=== PATIENT | female | born 1935 | race Caucasian/White ===

== ENCOUNTER 2019-10-21 06:44 | Observation (INO) ==
[~2019-10-21 06:44] MED LIST: CLINDAMYCIN 900 MG in DEXTROSE 5% 100 ML IV SCH
--- NOTE | 2019-10-21 07:35 | Emergency Department Note ---
General (ED) Blank Date of Service October 21, 2019 Romero Herr D.O., PGY-3, participated in the care of this patient. Resident Activity Tracking Resident Involvement: Resident Care Provided Care Provided: Adult [facility]
--- NOTE | 2019-10-21 07:52 | Emergency Department Note ---
History of Present Illness General Chief complaint: Infection Stated complaint: INFECTED SPINAL CORD STIMULATOR Time Seen by Provider: 10/21/19 07:04 Source: patient Limitations: no limitations History of Present Illness Provider complaint: Right low back pain Onset (ago): day(s) Location: back and right Pain Consistency: + constant Maximum Pain Intensity: 8 Quality: + other (Sore and itching) Associated symptoms: + rash (Redness to the area); no chest pain, no cough, no fever/chills, no nausea/vomiting and no shortness of breath This is an 84-year-old female who had a nerve stimulator placed at a different hospital on October 09. Postop day #2 she developed redness and itching to the right lower back where the control unit was placed. She complains of pain to that area which she describes as a soreness. She rates the pain an 8 out of 10 in severity. Is worse with palpation. No associated fever, vomiting, chest pain, shortness of breath, fecal urinary incontinence, numbness or weakness to lower extremity, cough or cold symptoms. She had the nerve stimulator placed because of years of right lower back pain rating down her legs. She called her surgeon yesterday whom she saw via telehealth. That surgeon talk to Dr. Simmons of pain management who recommended CT of the abdomen pelvis and blood work. This was performed yesterday at another hospital. Apparently Dr. Simmons was told the results and advised patient to come here for evaluation. Home Medications Home Medications Medication Instructions Recorded Confirmed Type acetaminophen [Tylenol Extra 500 mg PO Q6H PRN 10/21/19 10/21/19 History Strength] calcium polycarbophil [Fiber 1,250 mg PO DAILY 10/21/19 10/21/19 History Therapy (ca polycarboph)] cephalexin [Keflex] 500 mg PO TID 10/21/19 10/21/19 History diphenhydramine HCl [Benadryl] 25 mg PO DAILY 10/21/19 10/21/19 History docusate sodium [Colace] 100 mg PO DAILY 10/21/19 10/21/19 History tramadol 50 mg PO Q6H PRN 10/21/19 10/21/19 History Allergies Allergy/AdvReac Type Severity Reaction Status Date / Time latex Allergy Severe Swelling Verified 10/21/19 10:39 of Lip/Tongue/Throat acetaminophen [From Percocet] Allergy Mild Headache Verified 10/21/19 10:39 codeine Allergy Mild Nausea Verified 10/21/19 10:39 gabapentin [From Neurontin] Allergy Mild Dizziness Verified 10/21/19 10:39 oxycodone [From Percocet] Allergy Mild Nausea Verified 10/21/19 10:39 Penicillins Allergy Mild Rash Verified 10/21/19 10:39 Lhbamvw-Agj-Nda Reductase Allergy Mild Cramping Verified 10/21/19 10:39 Inhibitor of the Muscles Sulfa (Sulfonamide Allergy Mild Rash Verified 10/21/19 10:39 Antibiotics) Past Med/Surg History Medical History Chronic back pain Dyslipidemia GERD (gastroesophageal reflux disease) Herpes zoster Mitral regurgitation moderate Osteoarthritis Sciatica Seasonal allergies Surgical History S/P appendectomy S/P cholecystectomy S/P insertion of spinal cord stimulator 10/10/19 inserted at a hospital in [place] S/P PAVAN (total abdominal hysterectomy) S/P wrist surgery Right Social History Smoking Status: Never smoker Preferred Language: Portuguese current occupational status: retired Feels Safe at Home: Yes Review of Systems See HPI for pertinent positives & negatives. and A total of 10 systems reviewed and were otherwise negative Physical Exam Vital Signs Vital Signs - 24 hr 10/21/19 06:48 10/21/19 08:39 10/21/19 09:52 Temperature 36.7 C Temperature Source Oral Pulse Rate 68 Pulse Rate [Left Finger] 78 76 Pulse Rhythm [Left Finger] Pulse Strength [Left Finger] Respiratory Rate 18 18 20 Respiratory Effort / Characteristics Respiratory Depth Respiratory Pattern Blood Pressure 132/74 Blood Pressure [Left Arm] 134/97 123/68 Blood Pressure [Right Arm] Blood Pressure Mean 93 Blood Pressure Mean [Left Arm] 109 86 Blood Pressure Mean [Right Arm] Blood Pressure Position [Right Arm] Pulse Oximetry 98 96 97 Oxygen Delivery Method Room Air Room Air Room Air Sepsis Recent Fever Within 48 Hours No Sepsis New/Unexplained Change in Mental Status No Sepsis Action Taken by Nursing No Action Required 10/21/19 10:34 Temperature 36.7 C Temperature Source Oral Pulse Rate Pulse Rate [Left Finger] 77 Pulse Rhythm [Left Finger] Regular Pulse Strength [Left Finger] Normal Respiratory Rate 20 Respiratory Effort / Characteristics Non-Labored Spontaneous Respiratory Depth Normal Respiratory Pattern Regular Blood Pressure Blood Pressure [Left Arm] Blood Pressure [Right Arm] 141/85 H Blood Pressure Mean Blood Pressure Mean [Left Arm] Blood Pressure Mean [Right Arm] 103 Blood Pressure Position [Right Arm] Lying Pulse Oximetry 99 Oxygen Delivery Method Room Air Sepsis Recent Fever Within 48 Hours Sepsis New/Unexplained Change in Mental Status Sepsis Action Taken by Nursing Constitutional: Vital signs reviewed. Eyes: Pupils are equal round reactive to light. Conjunctiva are noninjected. ENT: Pharynx is clear without erythema or exudate. Mucous membranes are moist. Neck supple without meningeal signs. Respiratory: Clear to auscultation bilaterally. Breath sounds are equal bilaterally. Cardiovascular: Regular rate and rhythm. No rubs or gallops. GI: Soft, nondistended and nontender. Bowel sounds are present. Musculoskeletal: No peripheral edema. Midline incision to the spine shows no signs of infection or dehiscence. It appears to be healing appropriately. Incision over the right posterior sacral area is intact with some erythematous discoloration surrounding it without discharge. Integumentary: No cyanosis. or jaundice. Neurological: The patient is awake and alert. No focal deficits. Motor and sensation are intact in lower extremities. Negative straight leg raise bilaterally. Psychiatric: Normal affect. Not anxious appearing. Course Administered Medications Fentanyl Citrate (Fentanyl Citrate) 25 mcg IV Q5M PRN PRN Reason: PACU Use Only-Pain Stop: 10/21/19 18:21 Last Admin: 10/21/19 13:44 Dose: 25 mcg Documented by: [id number] Lactated Ringer's (Lr) 1,000 mls @ 125 mls/hr IV .Q8H ALEX Stop: 11/20/19 08:44 Last Admin: 10/21/19 09:20 Dose: 125 mls/hr Documented by: [id number] Discontinued Medications Bacitracin (Bacitracin) Confirm Administered Dose 50,000 units .ROUTE .STK-MED ONE Stop: 10/21/19 11:09 Last Admin: 10/21/19 13:18 Dose: Not Given Documented by: [id number] Bupivacaine HCl/Epinephrine Bitart (Bupivacaine 0.25%-Epi [id number]) Confirm Administered Dose 30 ml .ROUTE .STK-MED ONE Stop: 10/21/19 11:08 Last Admin: 10/21/19 13:10 Dose: 7 ml Documented by: [id number] Clindamycin Phosphate 900 mg/ (Dextrose) 106 mls @ 100 mls/hr IV PREOP ALXE Stop: 10/21/19 10:30 Last Admin: 10/21/19 11:46 Dose: 100 mls/hr Documented by: [id number] Medical Decision Making Differential Diagnosis Postoperative pain, allergy, dermatitis, postop pain, abscess Medical Records Attestation: I reviewed the patient's medical records. I did perform a limited focused review of portions of the patient's old chart on the electronic medical record. The patient has had no recent prior visits to this hospital. Home Medications Current Medication List: was personally reviewed by me Laboratory Data Attestation: I reviewed the patient's lab results. Result diagrams: 10/21/19 07:50 10/21/19 07:50 Lab Results 10/21/19 10/21/19 10/21/19 Range/Units 07:50 07:50 07:50 WBC 13.61 H (4.8-10.8) K/uL RBC 5.08 (4.2-5.4) M/uL Hgb 15.5 (12.0-16.0) g/dL Hct 45.4 (37-47) % MCV 89.4 (80-100) fL MCH 30.5 (25-34) pg MCHC 34.1 (32-36) g/dL RDW Std Deviation 43.8 (36.4-46.3) fL RDW Coeff of Elizabeth 13.3 (11.5-14.5) % Plt Count 265 (130-400) K/uL MPV 9.1 (7.4-10.4) fL Immature Gran % (Auto) 2.2 % Neut % (Auto) 57.4 % Lymph % (Auto) 27.9 % [place] % (Auto) 7.8 % Eos % (Auto) 4.4 % Baso % (Auto) 0.3 % Neut # (Auto) 7.81 H (1.4-6.5) K/uL Lymph # (Auto) 3.80 H (1.2-3.4) K/uL [place] # (Auto) 1.06 H (0.11-0.59) K/uL Eos # (Auto) 0.60 H (0-0.5) K/uL Baso # (Auto) 0.04 (0-0.2) K/uL Immature Gran # (Auto) 0.30 H (0.00-0.02) K/uL Sodium 142 (136-145) mmol/L Potassium 3.7 (3.5-5.1) mmol/L Chloride 108 H (98-107) mmol/L Carbon Dioxide 30 (21-32) mmol/L Anion Gap 4.0 (3-11) BUN 19 H (7-18) mg/dl Creatinine 0.87 (0.6-1.2) mg/dl Est Cr Clr Drug Dosing 36.2 ml/min Est GFR ( Amer) 71.4 Est GFR (Non-Af Amer) 61.6 BUN/Creatinine Ratio 21.6 H (10-20) Glucose 88 (70-99) mg/dl Calcium 9.1 (8.5-10.1) mg/dl C-Reactive Protein < 0.29 (0-0.29) mg/dl COVID-19 Eval Order COVID-19 PCR (Negative) 10/21/19 10/21/19 Range/Units Unknown Unknown WBC (4.8-10.8) K/uL RBC (4.2-5.4) M/uL Hgb (12.0-16.0) g/dL Hct (37-47) % MCV (80-100) fL MCH (25-34) pg MCHC (32-36) g/dL RDW Std Deviation (36.4-46.3) fL RDW Coeff of Elizabeth (11.5-14.5) % Plt Count (130-400) K/uL MPV (7.4-10.4) fL Immature Gran % (Auto) % Neut % (Auto) % Lymph % (Auto) % [place] % (Auto) % Eos % (Auto) % Baso % (Auto) % Neut # (Auto) (1.4-6.5) K/uL Lymph # (Auto) (1.2-3.4) K/uL [place] # (Auto) (0.11-0.59) K/uL Eos # (Auto) (0-0.5) K/uL Baso # (Auto) (0-0.2) K/uL Immature Gran # (Auto) (0.00-0.02) K/uL Sodium (136-145) mmol/L Potassium (3.5-5.1) mmol/L Chloride (98-107) mmol/L Carbon Dioxide (21-32) mmol/L Anion Gap (3-11) BUN (7-18) mg/dl Creatinine (0.6-1.2) mg/dl Est Cr Clr Drug Dosing ml/min Est GFR ( Amer) Est GFR (Non-Af Amer) BUN/Creatinine Ratio (10-20) Glucose (70-99) mg/dl Calcium (8.5-10.1) mg/dl C-Reactive Protein (0-0.29) mg/dl COVID-19 Eval Order Covid19 Done at [facility] COVID-19 PCR NEGATIVE (Negative) Blood Pressure Blood Pressure Findings: Elevated blood pressure Blood Pressure Disposition: Referred to patients primary care provider [facility] Narrative I did evaluate the patient as noted above. IV access was established. I did order and review the patient's blood work as noted in the electronic medical record. CBC demonstrates a white count of 13,000. CRP is not elevated. The patient, however, is on steroids. Electrolytes are unremarkable other than a ch loride of 108. I did speak to Dr. 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 He did come down to the emergency department and evaluated the patient for likely removal of the stimulator. He stated that the CT scan yesterday demonstrated no fluid collection. ESR and CRP were negative and the white count was elevated but likely from steroid use. The patient stated that she has been n.p.o. as instructed. The patient was taken to the OR for removal of her neurostimulator. Resident Physician Supervision Note: I did perform an independent evaluation and examination of this patient as described. I also saw this patient in conjunction with the resident, Dr. Benson, and guided management for the patient. Impression & Plan Post-operative infection Discharge Plan Visit Data *Final* Discharge Date/Time: 10/21/19 09:55 Chief Complaint: Infection Stated Complaint: INFECTED SPINAL CORD STIMULATOR ED Provider: Mikie Antunez ED Midlevel Provider: Romero Benson Discharge Problem: Post-operative infection Patient Disposition: Still a Patient Discharge Instructions Interventions: ED Discharge Assessment Last Done: 10/21/19 09:55 Discharge Problem: Post-operative infection Qualifiers: Encounter type: initial encounter Postoperative infection type: unspecified type Qualified Code(s): T81.40XA - Infection following a procedure, unspecified, initial encounter
[2019-10-21 08:01] LABS: Basophils # (auto) 0.04 K/uL (0-0.2); Basophils % (auto) 0.3 %; Eosinophils % (auto) 4.4 %; Hematocrit (blood only) 45.4 % (37-47); Hemoglobin 15.5 g/dL (12.0-16.0); Immature Granulocytes % (auto) 2.2 %; Lymphocytes % (auto) 27.9 %; Mean Corpuscular Hemoglobin 30.5 pg (25-34); Mean Corpuscular Hgb Conc 34.1 g/dL (32-36); Mean Corpuscular Volume 89.4 fL (80-100); Mean Platelet Volume 9.1 fL (7.4-10.4); Monocytes # (auto) 1.06 K/uL (0.11-0.59); Monocytes % (auto) 7.8 %; Neutrophils # (auto) 7.81 K/uL (1.4-6.5); Neutrophils % (auto) 57.4 %; Platelet Count 265 K/uL (130-400); RDW Coefficient of Variation 13.3 % (11.5-14.5); RDW Standard Deviation 43.8 fL (36.4-46.3); Red Blood Count 5.08 M/uL (4.2-5.4); White Blood Count 13.61 K/uL (4.8-10.8)
[2019-10-21 08:16] LABS: BUN Creatinine Ratio 21.6 (10-20); Calcium 9.1 mg/dl (8.5-10.1); Creatinine Clr Calc Pharmacy 36.2 ml/min; Est GFR (African American) 71.4; Est GFR (Non-African American) 61.6; Potassium 3.7 mmol/L (3.5-5.1)
[2019-10-21] MEDS ORDERED: LACTATED RINGER'S 1,000 ML IV SCH (08:45)
--- NOTE | 2019-10-21 09:28 | History & Physical Report ---
Date of Service October 21, 2019 Assessment & Plan (1) Post op infection: * Recommend explanation of pulse generator and leads. Risks, benefits and alternatives reviews. Patient agreable to the plan and wants to proceed. * Patient to undergo allergy testing for metal allergies as an outpatient for further consideration of future reimplantation. Present on Admission?: Yes (2) S/P insertion of spinal cord stimulator: Present on Admission?: Yes (3) Mitral regurgitation: Present on Admission?: Yes (4) Chronic back pain: Present on Admission?: Yes Admission and Anticipated Discharge Date Admission Date: 10/21/19 Anticipated date of discharge: 10/21/19 History of Present Illness Anita Zapata is a84 year ol female with neuropathic pain and underwent implantation of spinal cord stimulator system on 11/10/2019. He is after the implantation, patient noticed redness, tenderness and erythema over the pulse generator site in the right proximal buttock area. She did not experience any fevers, chills or any other signs of infection. She was seen by a local pain practitioner and placed clindamycin and oral dexamethasone for possibility of a allergic reaction to the acting in case. Subsequently she was seen by a general surgeon and the antibiotic was changed to Keflex. Patient was seen for follow-up yesterday local provider and was noted to have increased pain and tenderness and increasing area of erythema at the pulse generator site. She underwent a CT scan of the area with contrast which did not show any fluid collection or hematoma. She also underwent a CBC which showed elevated white count of 13,000 with no left shift. Rest of laboratory studies are unremarkable. Because of worsening symptoms in the pocket site, patient was asked to evaluated evaluated and was sent to the [facility] emergency room. After further examination and discussion with the patient, he was elected to explant the pulse generator and the leads due to possibly of infection or an allergic reaction to the titanium case. Primary Care Provider: NO PCP Allergies Allergy/AdvReac Type Severity Reaction Status Date / Time latex Allergy Severe Swelling Verified 10/21/19 10:39 of Lip/Tongue/Throat acetaminophen [From Percocet] Allergy Mild Headache Verified 10/21/19 10:39 codeine Allergy Mild Nausea Verified 10/21/19 10:39 gabapentin [From Neurontin] Allergy Mild Dizziness Verified 10/21/19 10:39 oxycodone [From Percocet] Allergy Mild Nausea Verified 10/21/19 10:39 Penicillins Allergy Mild Rash Verified 10/21/19 10:39 Xzltlmf-Sgs-Jlx Reductase Allergy Mild Cramping Verified 10/21/19 10:39 Inhibitor of the Muscles Sulfa (Sulfonamide Allergy Mild Rash Verified 10/21/19 10:39 Antibiotics) Home Medications Home Medications Medication Instructions Recorded Confirmed Type acetaminophen [Tylenol Extra 500 mg PO Q6H PRN 10/21/19 10/21/19 History Strength] calcium polycarbophil [Fiber 1,250 mg PO DAILY 10/21/19 10/21/19 History Therapy (ca polycarboph)] cephalexin [Keflex] 500 mg PO TID 10/21/19 10/21/19 History diphenhydramine HCl [Benadryl] 25 mg PO DAILY 10/21/19 10/21/19 History docusate sodium [Colace] 100 mg PO DAILY 10/21/19 10/21/19 History tramadol 50 mg PO Q6H PRN 10/21/19 10/21/19 History Past Med/Surg History Medical History (Reviewed 10/21/19 @ 11:04 by Enmanuel Rodriguez MD, [facility]) Chronic back pain Dyslipidemia GERD (gastroesophageal reflux disease) Herpes zoster Mitral regurgitation moderate Osteoarthritis Sciatica Seasonal allergies Surgical History S/P appendectomy S/P cholecystectomy S/P insertion of spinal cord stimulator 10/10/19 inserted at a hospital in [place] S/P PAVAN (total abdominal hysterectomy) S/P wrist surgery Right Social History (Reviewed 10/21/19 @ 11:04 by Enmanuel Rodriguez MD, [facility]) Smoking Status: Never smoker Preferred Language: Hungarian current occupational status: retired Feels Safe at Home: Yes Review of Systems Constitutional: no fever, no chills, no sweats and no body aches Respiratory: no cough, no dyspnea and no dyspnea on exertion Cardiovascular: + palpitations; no chest pain and no orthopnea Gastrointestinal: no vomiting Genitourinary: no dysuria and no urinary frequency Musculoskeletal: + back pain and + radicular pain (Right flank and right lower extremity); no muscle weakness Pulse generator right proximal buttock area. Integumentary: + wounds (Lumbar spine and right proximal buttock area) and + erythema (Pulse generator site) Neurologic: no localized weakness, no loss of sensation, no numbness and no paresthesia Hematologic / Lymphatic: no easy bleeding, no easy bruising and no coagulopathy Allergy / Immunological: as per Subjective / HPI Physical Exam Constitutional: WD/WN, vitals as above healthy appearing; no acute distress Eyes: PERRL, conjunctivae normal, anicteric sclerae ENMT: external ear and nose normal, oropharynx normal Neck: trachea midline, no thyromegaly Respiratory: normal respiratory effort, lungs clear to auscultation Cardiovascular: RRR, no murmur, no edema Vessels: normal peripheral pulses, normal carotid upstroke, brachial pulses present, radial pulses present and ulnar pulses present; no JVD and no carotid bruit Extremities: normal capillary refill; no pedal edema Gastrointestinal (Abdomen): normal bowel sounds, soft, nontender, no hepatosplenomegaly Musculoskeletal: no cyanosis or clubbing, extremities motor strength 5/5 Skin: + wound (Midthoracic lumbar spine and right posterior buttock area. Pulse generator site tender to palpation with obvious erythema.); no rashes and no ulcers Neurologic: normal touch/pain/proprioception Psychiatric: A+Ox3, euthymic affect Results & Data Results & Data ([facility]) Vital Signs (Past 12 Hours) Vital Signs Temp Pulse Pulse Resp BP BP Pulse Ox 10/21/19 08:39 78 18 134/97 96 10/21/19 06:48 36.7 C 68 18 132/74 98 CBC w Diff Results Results CBC w Diff: RBC 5.08 M/uL (4.2-5.4) 10/21/19 WBC 13.61 K/uL (4.8-10.8) H 10/21/19 Hgb 15.5 g/dL (12.0-16.0) 10/21/19 Hct 45.4 % (37-47) 10/21/19 MCV 89.4 fL (80-100) 10/21/19 MCH 30.5 pg (25-34) 10/21/19 MCHC 34.1 g/dL (32-36) 10/21/19 RDW Standard Deviation 43.8 fL (36.4-46.3) 10/21/19 RDW Coefficient of Variation 13.3 % (11.5-14.5) 10/21/19 Plt Count 265 K/uL (130-400) 10/21/19 MPV 9.1 fL (7.4-10.4) 10/21/19 Neutrophils (%) (Auto) 57.4 % 10/21/19 Lymphocytes (%) (Auto) 27.9 % 10/21/19 Monocytes # (Auto) 1.06 K/uL (0.11-0.59) H 10/21/19 Eosinophils # (Auto) 0.60 K/uL (0-0.5) H 10/21/19 Immature Granulocyte % (Auto) 2.2 % 10/21/19 Neutrophils # (Auto) 7.81 K/uL (1.4-6.5) H 10/21/19 Lymphocytes # (Auto) 3.80 K/uL (1.2-3.4) H 10/21/19 Monocytes # (Auto) 1.06 K/uL (0.11-0.59) H 10/21/19 Eosinophils # (Auto) 0.60 K/uL (0-0.5) H 10/21/19 Basophils # (Auto) 0.04 K/uL (0-0.2) 10/21/19 Immature Granulocyte # (Auto) 0.30 K/uL (0.00-0.02) H 10/21/19 Code Status & VTE Plan Code Status Full code VTE Prophylaxis Plan VTE Prophylaxis will be ordered: No Reason for no VTE mechanical prophylaxis: Treatment not indicated (1) Post op infection Encounter type: initial encounter Postoperative infection type: deep incisional surgical site Qualified Code(s): T81.42XA - Infection following a procedure, deep incisional surgical site, initial encounter (2) Mitral regurgitation Cardiac valve disease etiology: etiology unspecified Qualified Code(s): I34.0 - Nonrheumatic mitral (valve) insufficiency (3) Chronic back pain Back pain location: low back pain Back pain laterality: right Sciatica presence: with sciatica Sciatica laterality: sciatica of right side Qualified Code(s): M54.41 - Lumbago with sciatica, right side; G89.29 - Other chronic pain
[2019-10-21] MEDS ORDERED: fentaNYL citrate 100 MCG/2 ML VIAL ONE ×2 (10:19→12:15)
[2019-10-21] MEDS ORDERED: LABETALOL HCL IV 5 MG/ML 20ML IV PRN (10:21)
[2019-10-21] MEDS ORDERED: ONDANSETRON INJ 2 MG/ML 2 ML VIAL IV PRN (10:21)
[2019-10-21] MEDS ORDERED: ePHEDrine sulfate 50 MG/ML AMP IV PRN (10:21)
[2019-10-21] MEDS ORDERED: PHENYLEPHRINE 100MCG/ML 5ML SYR IV PRN (10:21)
[2019-10-21] MEDS ORDERED: ATROPINE SULFATE 0.1 MG/ML 10ML SYR IV PRN (10:21)
--- NOTE | 2019-10-21 10:36 | Anesthesiology Consultation ---
Date of Service October 21, 2019 The patient has a rapid Covid 19 test pending. She has had no known Covid 19 contact and has no symptoms of Covid 19. She does have an elevated WBC count likely from recent steroid use. The patient had surgery on 10/10/19 at [facility] to place the pain pump. Her surgeon was not available so she was transferred here for Dr. Rodriguez to see her. The patient saw her adjunct business instructor on 09/17/19 and was found to be stable from a cardiac standpoint with moderate mitral regurgitation. Assessment & Plan (1) Encounter for pre-operative examination: Chart Review Chart Review: Acceptable Risk for Surgery and Patient NOT seen in Pre Admission Testing Consults Requested none History Surgery Operation Date: 10/21/19 07:05 Proposed Procedures p Explantation Spinal Cord System - Enmanuelra Michael MD, [facility] Height/Weight Height: 4 ft 9.5 in Weight: 57.5 kg Allergies Allergy/AdvReac Type Severity Reaction Status Date / Time latex Allergy Severe Swelling Verified 10/21/19 10:39 of Lip/Tongue/Throat acetaminophen [From Percocet] Allergy Mild Headache Verified 10/21/19 10:39 codeine Allergy Mild Nausea Verified 10/21/19 10:39 gabapentin [From Neurontin] Allergy Mild Dizziness Verified 10/21/19 10:39 oxycodone [From Percocet] Allergy Mild Nausea Verified 10/21/19 10:39 Penicillins Allergy Mild Rash Verified 10/21/19 10:39 Unntzfe-Owd-Dui Reductase Allergy Mild Cramping Verified 10/21/19 10:39 Inhibitor of the Muscles Sulfa (Sulfonamide Allergy Mild Rash Verified 10/21/19 10:39 Antibiotics) Medications Home Medications Medication Instructions Recorded Confirmed Last Taken acetaminophen [Tylenol Extra 500 mg PO Q6H PRN 10/21/19 10/21/19 10/20/19 Strength] calcium polycarbophil [Fiber 1,250 mg PO DAILY 10/21/19 10/21/19 10/20/19 Therapy (ca polycarboph)] cephalexin [Keflex] 500 mg PO TID 10/21/19 10/21/19 10/20/19 diphenhydramine HCl [Benadryl] 25 mg PO DAILY 10/21/19 10/21/19 10/20/19 docusate sodium [Colace] 100 mg PO DAILY 10/21/19 10/21/19 10/20/19 tramadol 50 mg PO Q6H PRN 10/21/19 10/21/19 10/20/19 Active Medications Generic Name Dose Route Start Last Admin Trade Name Aroldoq PRN Reason Stop Dose Admin Lactated Ringer's 1,000 mls @ 125 mls/hr 10/21/19 08:45 10/21/19 09:20 Lr IV 11/20/19 08:44 125 mls/hr .Q8H ALEX Administration Past Medical History Medical History Chronic back pain Dyslipidemia GERD (gastroesophageal reflux disease) Herpes zoster Mitral regurgitation moderate Osteoarthritis Sciatica Seasonal allergies Past Surgical History Surgical History S/P appendectomy S/P cholecystectomy S/P insertion of spinal cord stimulator 10/10/19 inserted at a hospital in [place] S/P PAVAN (total abdominal hysterectomy) S/P wrist surgery Right Social History Smoking Status: Never smoker Physical Exam Vital Signs Last Vital Signs Temp 36.7 C 10/21/19 10:34 Pulse 77 10/21/19 10:34 Resp 20 10/21/19 10:34 BP 141/85 H 10/21/19 10:34 Pulse Ox 99 10/21/19 10:34 Testing Laboratory Results 10/21/19 07:50 10/21/19 07:50 Electrocardiogram Date: 01/09/19 Findings: + NSR @ (63) low voltage QRS Echocardiogram Date: 01/09/19 EF: 61 LV Function: normal Other Findings: + atrial enlargement (mild) and + diastolic dysfunction (mild) Valvular Disease: + MR (severe) mildly dilated proximal aorta, mild tricuspid insufficiency Stress Test Date: 04/04/19 Resting EF: 85 Resting LV Function: normal Other Testing Holter monitor 09/04/19 mostly sinus rhythm with rare APCs. Several nonsustained atrial tachycardias, ventricular couplets, bigeminy, and isolated PVCs. There were no significant pauses or sustained arrhythmias.
[2019-10-21] MEDS ORDERED: BUPIVACAINE/EPINEPHRINE 0.25% 1:200,000 30 ML VIAL ONE (11:07)
[2019-10-21] MEDS ORDERED: BACITRACIN INJ 50,000 UNIT VIAL ONE (11:08)
[2019-10-21] MEDS ORDERED: DEXAMETHASONE SOD INJ 4 MG/ML VIAL ONE (12:34)
[2019-10-21] MEDS ORDERED: ONDANSETRON INJ 2 MG/ML 2 ML VIAL ONE (12:34)
[2019-10-21] MEDS ORDERED: ePHEDrine sulfate 50 MG/ML SYR ONE (12:34)
[2019-10-21] MEDS ORDERED: NEOSTIGMINE METHYLSULFATE 5 MG/5 ML SYR ONE (12:34)
[2019-10-21] MEDS ORDERED: GLYCOPYRROLATE 0.2 MG/ML VIAL ONE (12:34)
[2019-10-21] MEDS ORDERED: LARYING-O-JET KIT (LTA) ONE (12:34)
[2019-10-21] MEDS ORDERED: PROPOFOL IV EMULSION 10 MG/ML 20 ML VIAL IV ONE (12:34)
[2019-10-21] MEDS ORDERED: ROCURONIUM BROMIDE 10 MG/ML 5 ML VIAL IV ONE (12:34)
[2019-10-21] MEDS ORDERED: LIDOCAINE HCL 2% 2 ML VIAL/AMP(20MG/ML) INFIL ONE (12:34)
[2019-10-21] MEDS ORDERED: PHENYLEPHRINE 100MCG/ML 5ML SYR ONE (12:34)
--- NOTE | 2019-10-21 13:36 | Operative Report ---
Post Operative Report Pre & Post Diagnosis Operation Date: 10/21/19 Preoperative diagnosis: Wound infection and superficial skin cellulitis spinal cord stimulator pulse generator site right proximal buttock. Postop diagnosis: Same I identified the patient and participated in the time-out.: Yes Procedure Operation Date: 10/21/19 07:05 1. Explantation of spinal cord stimulator pulse generator and leads. 2. Irrigation and drainage of pulse generator wound site. Surgeon Enmanuel Rodriguez MD, [facility] [employer] None Estimated Blood Loss 5 Findings Consistent with Post-Op Diagnosis Specimens 1. The wound cultures from Gram stain and cultures and sensitivity. 2. Pulse generator and leads sent to pathology. Drains 1 inch out of her gauze packed in the wound Anesthesia Type General Complications none Disposition Accompanied Patient To Recovery: No Description of Procedure REMOVAL OF IMPLANTED SPINAL CORD STIMULATOR SYSTEM Procedure: Explantation of spinal cord stimulator pulse generator and leads. Preoperative Diagnosis: Wound infection and cellulitis at the stimulator generator once. Postoperative diagnosis: Same Surgeon: Dr. Rodriguez Anesthesia: General/endotracheal tube Estimated blood loss: 5 mL Complications: None Specimen sent to pathology: 1. Generator and leads. 2. Wound culture for Gram stain, cultures and sensitivity. Prior to starting, the Patients diagnosis and the procedure were reviewed with the patient in detail. Possible risks and complications including infection, bleeding, damage to surrounding structures and increased pain were discussed. Alternative therapies were also reviewed. Patients questions were answered and they agreed to proceed. Informed consent was obtained. Allergies and medication list was reviewed. The patient was brought to the procedure room. Immediately prior to starting the procedure, a ``time out was conducted with the staff and the patient where the patient was identified, proposed procedure was verified, consent was reviewed and the proper site for the planned procedure was identified. He was given preoperative antibiotics consisting of 900 milligrams of clindamycin intravenously. General anesthesia was induced and he was placed in prone posit ion for the procedure. On examination, no signs of skin breakdown or infection were noted at the surgical site. The site was cleansed with DuraPrep followed by Betadine. Sterile drapes were applied. Fluoroscopy was utilized to identify the components of the spinal cord stimulator system including the leads. Using scalpel to incise the skin and then electrocautery for subcutaneous layers, the anchoring device for the leads was identified. Retaining sutures removed. The lead was easily removed intact without difficulty. Wound was then irrigated with Betadine containing normal saline and closed with antibiotic coated 0 strata fix suture and subcuticular was closed with 3 0 antibiotic coated strata fix suture. Perineo dressing and sterile 4x4 gauze dressing was applied and wound was covered with a sterile towel. Next, the pocket site in the right proximal buttock was opened up using scalpel and electrocautery and the anchoring sutures were removed. The remaining wires were also pull-through the pocket site uneventfully. Both wounds were then irrigated with Betadine containing sterile saline and hemostasis was assured using electrocautery. Wound was packed with 1 inch of iodophor gauze. Wound care service have been consulted to put a wound VAC at the pulse generator site. No complications were encountered. I attest to the content of the Intraoperative Record and any orders documented therein. Any exceptions are noted below.
[2019-10-21] MEDS: fentaNYL citrate 100 MCG/2 ML VIAL IV PRN ×4 (13:44→14:13)
[2019-10-21] MEDS: MEPERIDINE HCL 25 MG/ML CARP/VIAL IV PRN ×2 (14:25→14:45)
--- NOTE | 2019-10-21 14:59 | Anesthesiology Progress Note ---
Date of Service October 21, 2019 Anesthesia Post Procedure Vital Signs Vital Signs: Temp Pulse Pulse Pulse Resp BP BP 10/21/19 14:30 68 14 10/21/19 14:20 70 16 10/21/19 14:10 74 16 10/21/19 14:00 68 16 10/21/19 13:50 68 14 10/21/19 13:40 70 15 10/21/19 13:33 36.5 C 77 14 10/21/19 10:34 36.7 C 77 20 10/21/19 09:52 76 20 123/68 10/21/19 08:39 78 18 134/97 10/21/19 06:48 36.7 C 68 18 132/74 BP Pulse Ox 10/21/19 14:30 120/58 L 96 10/21/19 14:20 129/52 L 100 10/21/19 14:10 126/60 98 10/21/19 14:00 135/66 97 10/21/19 13:50 138/59 L 100 10/21/19 13:40 133/61 100 10/21/19 13:33 104/78 95 10/21/19 10:34 141/85 H 99 10/21/19 09:52 97 10/21/19 08:39 96 10/21/19 06:48 98 Pain Intensity Back: Pain Intensity: 3 Transfer of Care Handoff Completed per policy Notes Mental Status: alert / awake / arousable Patient Amnestic to Procedure: Yes Nausea / Vomiting: adequately controlled Pain: adequately controlled Airway Patency, RR, SpO2: stable & adequate BP & HR: stable & adequate Hydration State: stable & adequate Anesthetic Complications: no major complications apparent and Pt Satisfied with anesthetic care
[2019-10-21] MEDS: TRAMADOL HCL 50 MG TABLET PO PRN ×2 (15:47→22:30)
[2019-10-21] MEDS: ACETAMINOPHEN 500 MG TAB PO PRN ×2 (15:47→22:29)
[2019-10-21] MEDS ORDERED: CLINDAMYCIN IV SCH (17:45)
[2019-10-21] MEDS ORDERED: LACTATED RINGER S IV SCH (17:45)
[2019-10-21] MEDS ORDERED: DEXTROSE 5% IV SCH (17:45)
[2019-10-21] MEDS: CLINDAMYCIN 900 MG in DEXTROSE 5% 50 ML IV SCH (21:16)
[2019-10-22] MEDS: CLINDAMYCIN 900 MG in DEXTROSE 5% 50 ML IV SCH ×2 (04:08→12:55)
[2019-10-22] MEDS: ACETAMINOPHEN 500 MG TAB PO PRN ×2 (07:47→15:07)
[2019-10-22] MEDS: TRAMADOL HCL 50 MG TABLET PO PRN ×2 (07:47→15:07)
--- NOTE | 2019-10-22 08:48 | Pain Management Progress Note ---
Date of Service October 22, 2019 Assessment & Plan (1) S/P insertion of spinal cord stimulator: (2) Post-operative infection: 1. Patient will need set up with home nursing or wound clinic to care for the incision sites. 2. Continue Tramadol x 6 hrs PRN pain. 3. Patient is ready for discharge. Encounter type: initial encounter Postoperative infection type: unspecified type Qualified Code(s): T81.40XA - Infection following a procedure, unspecified, initial encounter Admission and Anticipated Discharge Date Admission Date: October 21, 2019 Anticipated date of discharge: 10/22/19 Subjective Mrs. Zapata is an 84 year old female that is status post explantation of spinal cord stimulator. The stimulator was originally implanted on 10/09 and became infected. She was placed on two different antibiotics and the site con tinued to worsen. The surgeon is out of the country so Dr. Rodriguez was contacted and agreeable to explant the stimulator. Patient states that the incision site pain is well controlled with the Tramadol. Pain is 3/10 currently. She is feeling well and denies any fevers, chills, weakness. Physical Exam Physical Exam: GENERAL: Speech and cognition is intact. Mood and affect is appropriate. Does not appear in acute distress. NEURO: Normal gait. Awake, alert, and oriented x 3. SKIN: Thoracolumbar incision appears well without erythema, warmth, or drainage. The right flank incision has packing in place with mild serous drainage. No erythema surrounding the incision.
[2019-10-22] MEDS ORDERED: DOCUSATE SODIUM 100 MG CAP PO SCH (09:00)
[2019-10-22] MEDS ORDERED: CALCIUM POLYCARBOPHIL 625MG TAB PO SCH (09:00)
--- NOTE | 2019-10-22 09:00 | Discharge Summary ---
Date of Service October 22, 2019 Admission HPI Per Admitting Provider Mrs. Zapata is an 84 year old female that had a spinal cord stimulator implanted on 10/09 by a physician in the [place] area. The battery site became infected. She was placed on two separate antibiotics without improvement. The incision site is erythematous and painful. The physician that implanted the stimulator is currently out of the country. Patient advised to go to the [facility] Emergency Department for evaluation. Dr. Rodriguez was contacted for explantation of the stimulator. Admission Exam (Per Admitting) Constitutional well developed and well nourished Eyes PERRL, conjunctivae normal, anicteric sclerae ENMT external ear and nose normal, oropharynx normal Neck trachea midline, no thyromegaly Respiratory normal respiratory effort, lungs clear to auscultation Cardiovascular RRR, no murmur, no edema Gastrointestinal (Abdomen) normal bowel sounds, soft, nontender, no hepatosplenomegaly Musculoskeletal no cyanosis or clubbing, extremities motor strength 5/5 Skin Incision along the right flank is erythematous and warm to the touch Neurologic PERRL, EOMI, accommodation nl, no face palsy, no dysarthria Psychiatric A+Ox3, euthymic affect Discharge Data Consultations 10/21/19 07:36 Radiology Transfer Of Images Stat 10/21/19 08:00 Consult Pain Management Stat 10/21/19 16:13 Consult Case Management - Discharge Planning Routine Procedures Performed Operation Date: 10/21/19 07:05 Actual Procedures p Explantation Spinal Cord System(Not Applicable) - Enmanuel Rodriguez MD, [facility] Hospital Course (1) Post op infection: Stimulator was infected and not responding to oral antibiotics. Dr. Rodriguez explanted the stimulator on 10/21/2019 without complication. She is doing well since the explantation. Pain is well controlled with Tramadol 50mg x 6 hrs PRN. She will require wound care or home nursing to pack the incision.
[2019-10-22 11:13] VITALS: BP 112/72; PULSE 69; TEMP 98.1; O2SAT 97
== END 2019-10-22 15:35 | disposition home health service (06) ==
LOC: ED 06:44 → OR 09:55 → 3E 09:55